=== PATIENT | female | born 1955 | race Caucasian/White ===

== ENCOUNTER 2016-07-08 15:59 | Observation (INO) | payer OTHER ==
[2016-07-08] VITALS (10 sets, daily range): BP systolic 106–142; BP diastolic 54–92; PULSE 71–91; RESP 10–19; O2SAT 95–100
[~2016-07-08] VITALS: Ht 154.9 cm; Wt 60.9 kg
[~2016-07-08 15:59] MED LIST: AZU500 PO; BUSP5TAB3 PO; LEVO75TA4 PO; LIOT5TAB3 PO; ONDA4TAB9 PO
--- NOTE | 2016-07-08 16:22 | ED.REPORT ---
HPI-Abd Pain F 40 and Over Date of Service Jul 08, 2016 ED Provider: Philip Dayday SALINAS 61 year old female presents to the ER accompanied by her complaining of a week of RLQ pain. Patient was sent to the ER by her PCP (MEGAN Meadows ) due to CT results that indicated appendicitis. She also complains of bilateral flank pain. Last PO intake was mahesh and peanut butter at 09:00 this morning. Nursing Notes Stated Complaint: APPENDICITIS Chief Complaint: Female Abdominal Pain Nursing Notes Reviewed: Yes Allergies: Coded Allergies: amitriptyline (Verified Allergy, Unknown, Abdominal Pain, 10/16/15) citalopram (Verified Allergy, Unknown, Extrapyramidal Symptoms, 10/16/15) Anesthetics - Amide Type (Unverified Adverse Reaction, Severe, Nausea, Vomiting, 10/16/15) Anesthetics - Lisa Type- Parabens (Unverified Adverse Reaction, Severe, Nausea,Vomiting, 10/16/15) Uncoded Allergies: CIPRFLOXIN (Allergy, Unknown, 10/16/15) LAMOTRIGONE (Allergy, Unknown, 10/16/15) METHENMIN CRISTI (Allergy, Unknown, 10/16/15) NITROFURANYOIN (Allergy, Unknown, 10/16/15) Scheduled Cetirizine HCl (24Hour Allergy) 10 Mg Tablet 10 MG PO DAILY Estrogens Conjugated (Premarin) 1 Gm Vagcream 0.5 APPLIC VAGINAL twice a week Levothyroxine (Levothyroxine) 75 Mcg Tablet 75 MCG PO DAILY Lifitegrast (Xiidra) 5 % Droperette 1 GTT BOTH_EYES BID Liothyronine Sodium (Liothyronine Sodium) 5 Mcg Tablet 5 MCG PO DAILY [place]-3/Dha/Epa/Fish Oil (Fish Oil 1,000 mg Softgel) 1 Each Capsule 1 EACH PO DAILY Ranitidine (Zantac) 150 Mg Tablet 150 MG PO BID Scheduled PRN Albuterol HFA (Proair HFA) 8.5 Gm Hfa.aer.ad 2 PUFFS INH Q4-6 HOURS PRN PRN For Shortness of Breath General Time Seen by MD: 16:21 Chief Complaint Abdominal pain Hx Obtained From: Patient, Spouse Arrived By: Walk-in Sudden in Onset?: No Onset Occurred: 1 week ago Symptom Duration: Since onset Location: : RLQ Quality: Painful Severity: Current: Moderate Severity: Maximum: Moderate Associated with: Denies: Dysuria, Urinary tract symptoms Pertinent Negative: Pt denies other symptoms Similar Sx Previous: No Past Medical History Past Medical History dissociative personality disorder Sleep apnea thyroid disease Rheumatoid arthritis Reports: GERD Past Surgical History hernia repair Smoking History Never Smoker Social History Alcohol Use: Denies alcohol use Drug Use: Denies drug use Ambulatory Status Independent Review of Systems Constitutional: Denies: Chills, Fever Respiratory: Denies: Shortness of breath Cardiovascular: Denies: Chest pain GI: Reports: Abdominal pain, Denies: Diarrhea, Vomiting Female: Reports: Flank pain, Denies: Dysuria, Urinary frequency, Urinary urgency, Urination decreased, Urination increased Complete sys rev & neg: except as marked. Physical Exam Vital Signs Vital Signs (First) Date Time Temp Pulse Resp B/P Pulse Ox O2 Delivery O2 Flow Rate FiO2 07/08/16 16:06 36.1 71 15 142/92 99 Room Air Initial VS: Reviewed Head / Eyes: Atraumatic, Normocephalic Neck: Supple, Non-tender, Full range of motion Extremities: Vascular intact, Neuro intact, No swelling, No tenderness Skin: Warm, Dry, No cyanosis Neurologic: Alert, Oriented, Nonfocal General/Constitutional: Awake, Alert, Well developed, Well nourished Respiratory / Chest: Breath sounds NL, Breath sounds = bilat, No respiratory distress, No rales, No rhonchi, No wheezing, No stridor Cardiovascular: Heart rate NL, Regular rhythm, Heart sounds NL, Peripheral circulation NL Abdomen: Soft, No guarding, No rebound Tenderness/Guarding/Rebound: Positive: Tender RLQ... (Moderate) Back: Inspection NL, Non-tender, No CVA tenderness Psychiatric: Not suicidal, Not homicidal Odd Affect Interpretation & Diagnostics ECG Interpretation ECG Interpretation: Sinus rhythm, rate 64 Probable left atrial enlargement Time: 16:43 Interpreted by: ED physician X-Ray Chest Interpretation Chest Xray Interpretation: IMPRESSION: No acute process. Dictated by: Andrea Peralta M.D. on 07/08/2016 at 16:59 Approved by: Andrea Peralta M.D. on 07/08/2016 at 16:59 View: Portable, 1 view Interpretation / Wet Read by: Interpret - Radiologist Re-Eval/Medical Decision Med Decision/Clinical Course CT proven appendicitis from clinic with focal right lower quadrant pain. IV Zosyn given. Will be admitted for surgery. Source of Hx: Old records Re-Evaluation/Progress : Time of Eval: 16:34 Re-Evaluation/Progress Note: Discussed physical examination findings and need for admission. Patient is amenable to the plan. All other questions addressed. Consultation : Referral / Consult Name: Gamal Boo MD Consulted With: Surgeon Call Returned at: 18:36 Yarder Operator: Requested OR, Accepts admit Counseled Regarding: Diagnosis, Lab results, Need for admission Discharge & Departure Primary Impression: Appendicitis Disposition: ADMITTED TO HOSPITAL Discharge Condition All VS Reviewed: Yes Condition: Stable Referrals: Marion Colon (PCP) Niranjan Attestation Portions of this note were transcribed by Adolph Chaparro. I, Dr. Palacios, personally performed the history, physical exam and medical decision-making; I reviewed and confirmed the accuracy of the information in the transcribed note. Signed by: Niranjan Palomino, 07/08/2016 and 18:20 copies to: Marion Colon Timothy S DO Jul 08, 2016 16:22 ADOLPH CHAPARRO Jul 08, 2016 16:29
[2016-07-08] MEDS ORDERED: 0.9% Sodium Chloride 1,000 ML IV SCH ×2 (16:25→18:38)
[2016-07-08] MEDS ORDERED: 0.9% Sodium Chloride 1,000 ML IV ONE (16:25)
[2016-07-08] MEDS ORDERED: Piperacillin-Tazo 3.375 Gm Inj 3.375 GM in Dextrose 5% Minibag Plus 50 ML IV ONE (16:25)
--- NOTE | 2016-07-08 17:00 | DRSVH ---
PROCEDURE: X-RAY CHEST ONE VIEW, PORTABLE ([id number]) INDICATIONS: preop TECHNIQUE: One view of the chest was acquired. COMPARISON: [facility], CR, XR CHEST 2VW, 05/25/2015, 15:21. FINDINGS: Surgical changes and devices: None. Lungs and pleura: No pleural effusions or pneumothorax. Lungs are clear. Mediastinum: Mediastinal contours appear normal. Heart size is normal. Bones and chest wall: No suspicious bony lesions. Overlying soft tissues appear unremarkable. IMPRESSION: No acute process. Dictated by: Andrea Peralta M.D. on 07/08/2016 at 16:59 Approved by: Andrea Peralta M.D. on 07/08/2016 at 16:59
[2016-07-08] MEDS ORDERED: CETI-343 PO (17:20)
[2016-07-08] MEDS ORDERED: PREC VAGINAL (17:20)
[2016-07-08] MEDS ORDERED: RANI150T11 PO (17:20)
[2016-07-08] MEDS ORDERED: LIFI1DRO BOTH_EYES (17:20)
[2016-07-08] MEDS ORDERED: OMEG-38 PO (17:20)
[2016-07-08] MEDS ORDERED: ALBU8.5H2 INH (17:20)
[2016-07-08] MEDS ORDERED: Ondansetron 2 mg/mL 2 mL Inj IVPUSH PRN ×3 (18:05→21:20)
[2016-07-08 18:16] LABS: APPEARANCE,URINE CLEAR (CLEAR,HAZY); COLOR,URINE STRAW (YELLOW); OCCULT BLOOD,URINE LARGE (NEGATIVE); PH,URINE 7.5 (5.0-8.0); UROBILINOGEN,URINE NORMAL (NORMAL)
[2016-07-08] MEDS ORDERED: Alum-Mag Hydrox-Simeth 30 mL Suspension PO PRN (18:40)
--- NOTE | 2016-07-08 18:46 | NUR ---
Admit to [facility] Pt admitted to [facility] from ED at 1815 hrs. VSS. Pt alert & oriented. No c/o pain. Spouse at bedside. Urine sent to lab by ED staff. Pt somewhat forgetful regarding past history; spouse assisting with pt's history. Pt NPO since [address] Boo speaking with pt now. Anticipating surgery this p.m.
[2016-07-08] MEDS ORDERED: Lactated Ringer's 1,000 ML IV ONE (19:04)
[2016-07-08] MEDS ORDERED: Bupivacaine-MPF 0.25%/EPI 30 mL Inj INJ ONE (19:05)
--- NOTE | 2016-07-08 19:23 | NUR ---
Pt transferred to [facility] and transported to OR by Romi. Report given via phone.
--- NOTE | 2016-07-08 19:42 | PCM.HPANE ---
Patient Data Date of Service: Jul 08, 2016 Surgeon Admitting Provider:Gamal Boo MD Attending Provider:Gaaml Boo MD Primary Care Physician:Marion Colon Other Provider: Reason for Visit APPY Ht/WT & BMI Height (Feet): 5 Height (Inches): 1 Weight (Kilograms): 60.91 Body Mass Index Allergies Coded Allergies: amitriptyline (Verified Allergy, Unknown, Abdominal Pain, 10/16/15) citalopram (Verified Allergy, Unknown, Extrapyramidal Symptoms, 10/16/15) Anesthetics - Amide Type (Unverified Adverse Reaction, Severe, Nausea, Vomiting, 10/16/15) Anesthetics - Lisa Type- Parabens (Unverified Adverse Reaction, Severe, Nausea,Vomiting, 10/16/15) Uncoded Allergies: CIPRFLOXIN (Allergy, Unknown, 10/16/15) LAMOTRIGONE (Allergy, Unknown, 10/16/15) METHENMIN CRISTI (Allergy, Unknown, 10/16/15) NITROFURANYOIN (Allergy, Unknown, 10/16/15) Past Anesthesia History Anesthesia History: Positive for:: Anesthesia Reactions (PONV), Denies:: Fam Anesthesia Reaction, Fam Malignant Hypertherm, Malignant Hyperthermia Diabetes History Hx Diabetes?: No Medications Hypertension Medication: No Reported Medications Lifitegrast (Xiidra)5 % Droperette1 Gtt BOTH_EYES BID #90 07/08/16 Ranitidine (Zantac)150 Mg [id number] Mg PO BID #180 07/08/16 Estrogens Conjugated (Premarin)1 Gm Vagcream0.5 Applic VAGINAL twice a week #30 07/08/16 [place]-3/Dha/Epa/Fish Oil (Fish Oil 1,000 mg Softgel)1 Each Capsule1 Each PO DAILY 07/08/16 Cetirizine HCl (24Hour Allergy)10 Mg [id number] Mg PO DAILY #90 07/08/16 Albuterol HFA (Proair HFA)8.5 Gm Hfa.aer.ad2 Puffs INH Q4-6 HOURS PRN For Shortness of Breath #8 07/08/16 Liothyronine Sodium 5 Mcg Tablet5 Mcg PO DAILY #30 TABLET 10/16/15 Levothyroxine 75 Mcg [id number] Mcg PO DAILY Ref 0 10/16/15 Discontinued Reported Medications Buspirone 5 Mg Tablet5 Mg PO TID Ref 0 10/16/15 Sulfasalazine (Sulfazine)500 Mg [id number] Mg PO BID 10/16/15 Discontinued Scripts Ondansetron ODT (Zofran ODT)4 Mg Tablet4 Mg PO Q4H PRN For Nausea #15 TABLET Prov:[place] MD 10/16/15 History Hx of Heart Problems?: Yes Cardiovascular History: Denies:: Chest Pain Congestive Heart Failure Hypertension Hx of Respiratory Problem?: Yes Respiratory History: Positive for:: Pneumonia Denies:: Chest Surgery Tuberculosis Neurological History: 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 Hx Diabetes: No Hx Alcohol Use: Yes (socially)Hx Substance Use: No Smoking Status: Never Smoker Have You Smoked inLast 12 mo: No Stop/Bang Treated for Sleep Apnea?: Yes Do You Have a CPAP Machine?: Yes ( will bring it in [facility]) S-Snoring: Do You Snore Loudly: Yes T-Tired: feel tired, fatigued: No O-Obsered: Observed not breath: Yes P-Blood Pressure: treated: No B- Body Mass Index > 35 kg/m2: No A- Age over 50: Yes N- Neck Large Circumference: Yes G- Gender Male: No CARMEL Total Score: 3 CARMEL Risk Assessment: Low Risk, <3 Yes Risk Assessment Category Category 1A: Patient has history of documented sleep apnea, and HAS NOT received any narcotic, sedative or anesthesia administration during this stay. Category 1B: Patient has history of documented sleep apnea, and HAS received any narcotic , sedative or anesthesia administration during this stay Category 2: Patient has SUSPECTED Obstructive Sleep Apnea, and HAS received any narcotic , sedative or anesthesia administration during this stay. Category 3: Patient has SUSPECTED Obstructive Sleep Apnea and HAS NOT received narcotic, sedative or anesthesia administration during this stay. Category 4: Outpatient in Procedural Areas with known sleep apnea or who screen positive for High Risk via the STOP/BANG questionnaire. Exam Exam Vital Signs Vital Signs Date Time Temp Pulse Resp B/P Pulse Ox O2 Delivery O2 Flow Rate FiO2 07/08/16 18:33 36.5 77 16 127/82 99 Room Air 07/08/16 17:57 36.7 76 17 114/55 99 Room Air 07/08/16 16:06 36.1 71 15 142/92 99 Room Air General Appearance: Alert, Oriented X3, Cooperative, No Acute Distress HEENT/AIRWAY: MP 3, Neck Movement (from), Mouth Opening (<3), Other (tmd3) Lungs: Normal Air Movement Heart: Exam Unremarkable, Regular Rate/Rhythm, Normal S1, Normal S2, No Murmurs /Rubs/Gallops Meds/Labs/Diagnostics Admission Meds Current Medications Sodium Chloride 1,000 ml @ 0 mls/hr Q0M ONCE IV Last administered on 07/08/16 16:41; Start 07/08/16 at 16:25; Stop 07/08/16 at 16:26; Status DC Sodium Chloride 1,000 ml @ 250 mls/hr Q4H IV Last administered on 07/08/16 17: 15; Start 07/08/16 at 16:25 Piperacillin Sod/ Tazobactam Sod 3.375 gm/Dextrose/ Water 50 ml @ 100 mls/hr ONCE ONCE IV Last administered on 07/08/16 16:41; Start 07/08/16 at 16:25; Stop 07/08/16 at 16:54; Status DC Lactated Ringer's (Lr) 1,000 ml @ ud STK-MED ONCE IV Last administered on 19:04; Start 07/08/16 at 19:04; Stop 07/08/16 at 19:05; Status DC Bupivacaine HCl/ Epinephrine Bitart (Sensorcaine-MPF 0.25%/EPI Inj) 30 ml STK- MED ONCE INJ Last administered on 07/08/16 19:05; Start 07/08/16 at 19:05; Stop 07/08/16 at 19:26; Status DC Labs Test 07/08/16 18:00 Urine Color Straw (YELLOW) Urine Appearance Clear (CLEAR,HAZY) Urine pH 7.5 (5.0-8.0) Urine Specific [place] 1.010 (1.003-1.035) Urine Protein Negativemg/dL (NEG,TRACE) Urine Glucose (UA) Negativemg/dL (NEGATIVE) Urine Ketones Tracemg/dL (NEGATIVE) Urine Occult Blood Large (NEGATIVE) Urine Nitrite Negative (NEGATIVE) Urine Bilirubin Negative (NEGATIVE) Urine Urobilinogen Normalmg/dL (NORMAL) Urine Leukocyte Esterase Trace (NEGATIVE) Urine RBC 3-10/hpf (0-2) Urine WBC 6-10/hpf (0-5) Urine Epithelial Cells None/hpf (NONE-MOD) Urine Crystals None seen (NONE SEEN) Urine Bacteria Few/hpf (NONE-FEW) Urine Hyaline Casts None/lpf (NONE) Urine Granular Casts None seen (NONE SEEN) Urine Waxy Casts None seen (NONE SEEN) Urine Red Blood Cell Casts None seen (NONE SEEN) Urine White Blood Cell Casts None seen (NONE SEEN) Urine Mucus None seen (None Seen) Urine Trichomonas None seen (NONE SEEN) Urine Yeast None (NONE SEEN) Urinalysis Comment None Urine Culture Reflexed Indicated Plan Impression Patient chart reviewed, patient interviewed and anesthestic plan with risks, benefits, and alternatives discussed, and informed consent obtained. ASA Physical Status: ASA2 Plus Emergency Anesthetic Plan: GA Bene/Risks/Altern/Consents: Yes HP Complete Prior to Induction: Yes Other History obtained from patient and ; signed consent per patient wishes Myron Anand MD Jul 08, 2016 19:42
[2016-07-08] MEDS ORDERED: HYDROmorphone 1 mg/mL Inj ONE (21:15)
[2016-07-08] MEDS ORDERED: fentaNYL-PF 50 mCg/mL 2 mL Inj ONE (21:15)
[2016-07-08] MEDS ORDERED: Lactated Ringer's 1,000 ML IV SCH (21:19)
[2016-07-08] MEDS ORDERED: Lactated Ringer's 500 ML IV PRN (21:19)
[2016-07-08] MEDS ORDERED: MetoCLOpramide 5 mg/mL 2 mL Inj IVPUSH PRN (21:20)
[2016-07-08] MEDS ORDERED: Phenylephrine 10,000 mCg/mL Inj IVPUSH PRN (21:20)
[2016-07-08] MEDS ORDERED: fentaNYL-PF 50 mCg/mL 2 mL Inj IVPUSH PRN (21:20)
[2016-07-08] MEDS ORDERED: Dexamethasone 4 mg/mL Inj IVPUSH PRN (21:20)
[2016-07-08] MEDS ORDERED: EPHEDrine Sulfate 50 mg/mL Inj IVPUSH PRN (21:20)
[2016-07-08] MEDS ORDERED: HYDROmorphone 1 mg/mL Inj IVPUSH PRN (21:20)
[2016-07-08] MEDS ORDERED: Sodium Chloride LOK Flush 10 mL Syringe IVFLUSH PRN (22:00)
[2016-07-08] MEDS ORDERED: Albuterol 2.5 mg/3 mL Inhalation Solution NEB PRN (22:10)
--- NOTE | 2016-07-08 23:42 | HP ---
[address] [address] HISTORY AND PHYSICAL PATIENT: JYOTI GUTIERREZ : 1955 MR#: [id number] ADMIT: 07/08/2016 JOB ID: [id number] CORRECTED REPORT: DATE OF SERVICE: 07/08/2016 REASON FOR CONSULTATION: The patient is seen in consultation at request of Dr. Dayday Palacios of the emergency department regarding further evaluation and management of likely acute appendicitis. HISTORY OF PRESENT ILLNESS: The patient is a 61-year-old female who presented to the emergency department today with complaint of one week of abdominal and back pain, predominantly on the right side. She tells me about a week ago her pain began with back pain and slowly progressed to her abdomen. She has had a number of sick family members and so felt that this was just some kind of viral illness. She describes the pain as an intense, dull ache. It got to the point where it was intolerable today, prompting her to see her primary care physician who obtained a CT scan. I have personally reviewed those images and it demonstrated dilated appendix with thickened wall suggestive of acute nonperforated appendicitis. She was therefore sent to the emergency department. She denies any nausea, vomiting, as well as any fevers or chills. She has had a decreased appetite. Her most recent colonoscopy was a few years ago and she reports may have had a single polyp. PAST MEDICAL HISTORY: 1. Dissociative personality disorder. 2. Obstructive sleep apnea. 3. Thyroid disease. 4. Rheumatoid arthritis. 5. GERD. PAST SURGICAL HISTORY: 1. Inguinal hernia repair. 2. MYAH/BSO. 3. Bladder lift. 4. D and C, complicated by peritonitis requiring laparoscopic lavage. 5. Multiple arm surgeries. MEDICATIONS: Current medications were reviewed in the computer. ALLERGIES: The patient has multiple allergies which are reviewed in the computer. FAMILY HISTORY: Family history is reviewed. Significant for nausea associated with anesthesia. SOCIAL HISTORY: She lives in [place], she works as an artist. She does not smoke and drinks 1-2 alcoholic drinks per night. REVIEW OF SYSTEMS: Full review of systems is obtained and is positive for abdominal pain as well as increased frequency of bowel movements associated with discomfort. All other systems reviewed and negative. PHYSICAL EXAMINATION: Vital signs: She is afebrile with temperature 36.5 degrees, heart rate of 77 beats per minute, blood pressure 127/82, she is satting 99% on room air with respiratory 16 breaths per minute. In general, she appears comfortable in no acute distress. Cardiovascular: She has a regular rate and rhythm. No appreciated murmurs, rubs, gallops. Pulmonary: Lungs clear to auscultation bilaterally. Vascular: She has no carotid bruit. Neck: She has no thyromegaly. Lymph: She has no cervical lymphadenopathy. GI: Her abdomen is soft, mildly distended, exquisitely tender to palpation particularly in the right lower quadrant. (Of note, when I examine her and causing pain, this brought upon her dissociative personality disorder with her ultimate personality of Loi, a 12-year-old girl being manifest). Extremities: Warm without edema. Skin: Warm without rash. Neuro: Pleasant though certainly complicated by this alternate personality. IMAGING: CT scan is personally reviewed and as per the HPI. ASSESSMENT AND PLAN: This is a 61-year-old female with physical findings and radiographic findings suggestive of early acute appendicitis. I discussed the diagnosis with the patient and her . Her provided consent for laparoscopic appendectomy. The technical and convalescent aspects of surgery as well as potential risks and complications were reviewed. This will be done as soon as an operating room is available. Corrected by HEDY 07/12/16 at 10:32am Report type. MTDD
[2016-07-09 00:12] VITALS: BP 122/67; PULSE 85; RESP 16; O2SAT 97
[2016-07-09] MEDS: Heparin 5,000 Unit/mL Inj SUBQ SCH ×2 (00:27→08:50)
[2016-07-09] MEDS: oxyCODONE-Acetamin 5-325 mg Tablet PO PRN ×4 (00:40→13:38)
--- NOTE | 2016-07-09 01:31 | OP ---
[address] [address] OPERATIVE REPORT PATIENT: JYOTI GUTIERREZ : 1955 MR#: [id number] ADMIT: 07/08/2016 JOB ID: [id number] DATE OF SURGERY: 07/08/2016 PREOPERATIVE DIAGNOSIS(ES): Acute appendicitis. POSTOPERATIVE DIAGNOSIS(ES): Acute nonsuppurative appendicitis. OPERATION: Laparoscopic appendectomy. SURGEON: Gamal Boo MD ANESTHESIA: General. COAL DRIER OPERATOR: YOBANI Dawkins COMPLICATIONS: None. ESTIMATED BLOOD LOSS: Less than 10 mL. CONDITION: Satisfactory. SPECIMEN: Appendix. FINDINGS: The appendix was acutely inflamed but nonperforated. HISTORY AND INDICATION: The patient is a 51-year-old female, who presented to the emergency department today with complaint of one week of abdominal pain. CT scan was consistent with acute appendicitis. OPERATIVE TECHNIQUE: The patient was taken to the operating room and placed in supine position. General anesthesia was administered. Preoperative antibiotics were given. The abdomen was prepped and draped in standard surgical fashion. A procedure pause was performed. Entry was gained to the abdomen through a small left lower quadrant incision using a 5 mm Optiview trocar. Pneumoperitoneum was achieved without complication. Additional 5 mm ports were placed in the umbilical area as well as in the suprapubic region. Local anesthetic was not infused due to listed patient allergy. Eventually, the left lower quadrant port was up-sized to a 12 mm. The appendix was grasped and dissection begun through the mesoappendix to create a window. The mesoappendix was then stapled with a PABLO 45 white load. The artery bled a little bit and was controlled with electrocautery. I was then able to get the PABLO 45 blue load across the base of the appendix. The base was quite thickened and inflamed, so I took it higher up on the cecum, taking care to avoid the ileocecal bowel. It required two loads to fully transect the base of the appendix and cecum. The appendix was placed in an EndoCatch bag and removed at the 12 mm port site. The surgical bed was copiously irrigated. It was hemostatic. The 12 mm port site fascia was closed using 0 PDS suture with a laparoscopic suture passer. The pneumoperitoneum released and the remaining ports removed. Skin was closed using 4-0 Monocryl. The entire procedure was well tolerated without complication.
[2016-07-09 04:52] VITALS: BP 131/74; PULSE 89; RESP 16; O2SAT 97
[2016-07-09 06:19] LABS: Mean Corpuscular Hemoglobin 31.5 pg (27.0-35.0); Mean Corpuscular Volume 95.6 fL (81-100)
--- NOTE | 2016-07-09 07:49 | NUR ---
Postop Return to unit at 2200 07/08. Pt requesting to void, nauseated and produced 100 ml emesis post void. Zofran IV for nausea, dilauded for pain. Pt NIKOLAI and aids are at bedside. Pt fluctuates between Genora/Loi per disassociative dx. NS running at 100. Care continues
[2016-07-09] MEDS ORDERED: Non-Formulary Medication (Ranitidine (Zantac) 150 MG) PO SCH (08:30)
[2016-07-09 09:52] VITALS: BP 115/64; PULSE 78; RESP 16; O2SAT 96
--- NOTE | 2016-07-09 09:58 | PROG NOTE ---
[address] [address] PROGRESS NOTE PATIENT: JYOTI GUTIERREZ : 1955 MR#: [id number] ADMIT: 07/08/2016 JOB ID: [id number] DATE: 07/09/2016 SUBJECTIVE: Postop day one from laparoscopic appendectomy for acute nonperforated appendicitis. The patient states she is feeling much better this morning. She does have some pain in the left port site incision. Overnight, she has remained afebrile. Everything is back to normal this morning. She is alert, conscious, and comfortable. Her abdomen is soft, not significantly tender. Her dressings are clean, dry, and intact. LABORATORY STUDIES: Her white blood cell count this morning is 8.6. ASSESSMENT AND PLAN: This is a 61-year-old female, postoperative day one from laparoscopic appendectomy for acute nonperforated appendicitis. This morning, her IV fluids can be stopped. I encouraged her to get up out of bed and ambulate. We will see how she is doing in the later morning/early afternoon, and hopefully, she can go home.
--- NOTE | 2016-07-09 10:29 | PCM.ANEP1 ---
Post Anesthesia Phase 1 PACU Phase 1 Assessment Date of Service: Jul 08, 2016 Vital Signs Vital Signs Date Time Temp Pulse Resp B/P Pulse Ox O2 Delivery O2 Flow Rate FiO2 07/09/16 09:52 36.8 78 16 115/64 96 Room Air 07/09/16 04:52 36.8 89 16 131/74 97 Nasal Cannula 2.00 Anesthetic Administered: GA Level of Alertness: Awake, talking LOPEZ's with Equal Strength: Yes Pain: Yes Pain Scale Score: 3 Nausea or Vomiting: No Oxygen Delivery: Simple Mask Lungs: Normal Air Movement Myron Anand MD Jul 09, 2016 10:28
--- NOTE | 2016-07-09 10:29 | PCM.ANEP2 ---
Post Anesthesia Evaluation ASA/CMS Post Anesthesia VS in Patient's Normal Range?: Yes Resp Stable; Airway Patent?: Yes CV Function & Hydration Stable: Yes Mental Status Recovered?: Yes Pain control Satisfactory?: Yes N/V Control Satisfactory?: Yes Myron Anand MD Jul 09, 2016 10:29
[2016-07-09] MEDS ORDERED: Ondansetron 2 mg/mL 2 mL Inj IVPUSH PRN (10:30)
[2016-07-09] MEDS ORDERED: OXYC1TAB24 PO (13:00)
--- NOTE | 2016-07-09 13:00 | PCM.DISURG ---
Surgical Discharge Instruction Date of Service Jul 09, 2016 Dates of Hospitalization Date of Hospital Admission Jul 08, 2016 at 17:00 Providers Admitting Physician: Gamal Boo MD Primary Care Physician: Marion Colon Attending Physician: Gamal Boo MD Discharge Diagnosis Discharge Diagnosis Acute Appendicitis Diet Discharge Diet: No restrictions Activity Discharge Activity-General: Be up and about, Balance rest and activity, No driving while taking narcotic Dressing and Incisional Care Dressing Care: Allow Steri Stripes to fall off, Remove outer dressing after 24 hrs Hygiene: May shower Follow Up Plan Follow Up Plan follow up with surgery PA in 2-4 weeks Call your provider for: Fever, Increasing abdominal pain, Nausea, Vomiting, Increasing wound pain Gamal Boo MD Jul 09, 2016 13:00
[2016-07-09 13:16] VITALS: BP 94/68; PULSE 71; RESP 18; O2SAT 98
[2016-07-09] MEDS ORDERED: Ondansetron 2 mg/mL 2 mL Inj ONE (13:39)
[2016-07-09] MEDS ORDERED: fentaNYL-PF 50 mCg/mL 2 mL Inj ONE (13:39)
[2016-07-09] MEDS ORDERED: Glycopyrrolate 0.2 MG/ML 1mL Inj ONE (13:39)
[2016-07-09] MEDS ORDERED: Rocuronium 10 mg/mL 5 mL Inj ONE (13:39)
[2016-07-09] MEDS ORDERED: Propofol 10,000 mCg/mL 20 mL Inj ONE (13:39)
[2016-07-09] MEDS ORDERED: HYDROmorphone 2 mg/mL Inj ONE (13:39)
[2016-07-09] MEDS ORDERED: Phenylephrine/NS 100 mCg/mL 10 mL Syringe IVPUSH ONE (13:39)
--- NOTE | 2016-07-09 13:50 | NUR ---
Discharge Patient discharged via wheel chair accompanied by nursing staff. Reviewed discharge paper work, new prescription for pain medication, and care notes written and patient understood discharge instructions. c/o pain prior to discharge 11/14. PRN pain medication given as ordered. discontinued IV with out difficulty. Patient riding with spouse.
--- NOTE | 2016-07-10 15:11 | PCM.DC.SUR ---
Discharge Summary Date of Service: Date of Hospital Admission: Jul 08, 2016 at 17:00 Date of Operation(s): 07/08/2016 Date of Discharge: 07/09/2016 Diagnosis at Time of Discharge Primary diagnosis: Acute nonsuppurative appendicitis Other diagnoses: 1. Dissociative personality disorder. 2. Obstructive sleep apnea. 3. Thyroid disease. 4. Rheumatoid arthritis. 5. GERD. Problems: Operation Laparoscopic appendectomy Brief History and Physical: The patient is a 61-year-old female who presented to the emergency department with complaint of one week of abdominal and back pain, predominantly on the right side. About a week prior to admission her pain began with back pain and slowly progressed to her abdomen. She had a number of sick family members and felt that this was just some kind of viral illness. She describes the pain as an intense, dull ache. It got to the point where it was intolerable prompting her to see her primary care physician who obtained a CT scan which demonstrated dilated appendix with thickened wall suggestive of acute nonperforated appendicitis. She was therefore sent to the emergency department. She denied any nausea, vomiting, as well as any fevers or chills. She had a decreased appetite. Consultants: None Hospital Course: The patient was admitted and underwent the above-mentioned operation without complication. She was stable for discharge the following day. Pathology: Pending Disposition: The patient was discharged home on her first postsurgical day. Follow-up Plan: She will follow-up in the office with a surgical PA in 2-4 weeks. Albuterol HFA (Proair HFA) 8.5 Gm Hfa.aer.ad 2 PUFFS INH Q4-6 HOURS PRN PRN For Shortness of Breath (Reported) Cetirizine HCl (24Hour Allergy) 10 Mg Tablet 10 MG PO DAILY (Reported) Estrogens Conjugated (Premarin) 1 Gm Vagcream 0.5 APPLIC VAGINAL twice a week ( Reported) Levothyroxine (Levothyroxine) 75 Mcg Tablet 75 MCG PO DAILY (Reported) Lifitegrast (Xiidra) 5 % Droperette 1 GTT BOTH_EYES BID (Reported) Liothyronine Sodium (Liothyronine Sodium) 5 Mcg Tablet 5 MCG PO DAILY (Reported ) [place]-3/Dha/Epa/Fish Oil (Fish Oil 1,000 mg Softgel) 1 Each Capsule 1 EACH PO DAILY (Reported) Ranitidine (Zantac) 150 Mg Tablet 150 MG PO BID (Reported) oxyCODONE-Acetaminophen 5-325 mg (oxyCODONE-Acetaminophen 5-325 mg) 1 Each Tablet 1-2 TAB PO Q4H PRN PRN For Severe Pain copies to: Marion Colon Fred H PA-C Jul 10, 2016 15:11
--- NOTE | 2016-07-11 11:22 | PATH ---
SURGICAL PATHOLOGY Attending Physician:Gamal Boo MD CASE STATUS: Signed Out PATIENT NAME: JYOTI GUTIERREZ PID: [id number] : 1955 DATE COLLECTED:07/08/2016 00:00 SPECIMEN: Appendix CLINICAL HISTORY: APPENDICITIS 1). APPENDIX FINAL DIAGNOSIS: Appendix: Acute appendicitis. No evidence of malignancy. ICD10 K35.80 GROSS DESCRIPTION: The specimen is received in formalin, labeled with the patient's name, sublabeled as appendix, and consists of an intact appendix (length-5.1 cm, diameter-1.5 cm) with attached mesoappendix (up to 2.2 cm in depth) and portion of cecum (4.1 x 2.0 x 0.5 cm). The resection margin is received stapled. The serosa is cervantes-white smooth and shiny. The serosa and mesoappendix are covered in cervantes flaky friable exudate. The lumen contains ocasio-schwartz solid soft material. The wall is up to 0.5 cm thick. The cecum has schwartz smooth shiny mucosa with normal folds. No nodules, masses or lesions are identified. Ink code: black-resection margin. Section code: (A) resection margin; (B-D) appendix, new accounts banking representative. 07/10/16 MICRO DESCRIPTION: Please see diagnosis. ICD-9 CODES: CPT CODES: 1: 72818 Electronically Signed Out Sahara Ridley MD [facility] [address], [place] [address] Technical component performed at [facility], [address] [place] [address] Ave[address], [place], [address]
== END 2016-07-09 13:40 | disposition home or self-care (01) ==
LOC: SED 15:59 → OSC 17:00
PROVIDERS: ADMIT General Practice; ATTEND General Practice
DX: K35.80 Unspecified acute appendicitis (principal); F60.89 Other specific personality disorders; G47.33 Obstructive sleep apnea (adult) (pediatric); M06.9 Rheumatoid arthritis, unspecified; K21.9 Gastro-esophageal reflux disease without esophagitis; Z88.8 Allergy status to other drugs, medicaments and biological substances; Z79.890 Hormone replacement therapy; Z87.442 Personal history of urinary calculi; Z90.710 Acquired absence of both cervix and uterus
CPT/HCPCS: 36415; 44970; 71010; 81000; 85027; 87086; 88304; 93005; 96361; 96365; 96375; 99285; G0378; J1170; J1644; J2250; J2270; J2370; J2405; J2543; J3010; J7030; J7120